=== PATIENT | male | born 1945 | race Caucasian/White ===

== ENCOUNTER 2022-03-05 09:13 | Outpatient (CLI) | payer MEDICARE, OTHER | END 2022-03-05 09:14 | disposition home or self-care (01) | LOC: CSHWCC 09:13 | PROVIDERS: ATTEND Nurse Practitioner Family | DX: M27.2 Inflammatory conditions of jaws (principal) | CPT/HCPCS: 99203; G0463 ==

== ENCOUNTER 2022-03-10 14:39 | Outpatient (CLI) | payer MEDICARE | END 2022-03-10 14:40 | disposition home or self-care (01) | LOC: CSHULT 14:39 | PROVIDERS: ATTEND Nurse Practitioner Family | DX: M27.2 Inflammatory conditions of jaws (principal); I51.7 Cardiomegaly; I51.89 Other ill-defined heart diseases | CPT/HCPCS: 93306 ==

== ENCOUNTER 2022-03-16 08:10 | Outpatient (CLI) | payer MEDICARE | END 2022-03-16 08:11 | disposition home or self-care (01) | LOC: CSHWCC 08:10 | PROVIDERS: ATTEND Nurse Practitioner Family | DX: M27.2 Inflammatory conditions of jaws (principal) ==

== ENCOUNTER → 2022-03-17 | Outpatient (CLI) | payer MEDICARE | LOC: CSHWCC 15:35 | PROVIDERS: ATTEND Nurse Practitioner Family | DX: M27.2 Inflammatory conditions of jaws (principal) | CPT/HCPCS: 97139; G0277 ==

== ENCOUNTER 2022-03-18 07:58 | Outpatient (CLI) | payer MEDICARE | END 2022-03-18 07:59 | disposition home or self-care (01) | LOC: CSHWCC 07:58 | PROVIDERS: ATTEND Nurse Practitioner Family | DX: M27.2 Inflammatory conditions of jaws (principal) ==

== ENCOUNTER 2022-03-19 08:50 | Outpatient (CLI) | payer MEDICARE | END 2022-03-19 08:51 | disposition home or self-care (01) | LOC: CSHWCC 08:50 | PROVIDERS: ATTEND Nurse Practitioner Family | DX: M27.2 Inflammatory conditions of jaws (principal) ==

== ENCOUNTER 2022-03-22 08:29 | Outpatient (CLI) | payer MEDICARE | END 2022-03-22 08:30 | disposition home or self-care (01) | LOC: CSHWCC 08:29 | PROVIDERS: ATTEND Nurse Practitioner Family | DX: M27.2 Inflammatory conditions of jaws (principal) ==

== ENCOUNTER 2022-03-23 10:35 | Outpatient (CLI) | payer MEDICARE | END 2022-03-23 10:36 | disposition home or self-care (01) | LOC: CSHWCC 10:35 | PROVIDERS: ATTEND Nurse Practitioner Family | DX: M27.2 Inflammatory conditions of jaws (principal) ==

== ENCOUNTER 2022-03-29 11:00 | Outpatient (CLI) | payer MEDICARE | END 2022-03-29 11:01 | disposition home or self-care (01) | LOC: CSHWCC 11:00 | PROVIDERS: ATTEND Nurse Practitioner Family | DX: M27.2 Inflammatory conditions of jaws (principal) ==

== ENCOUNTER 2022-03-30 08:22 | Outpatient (CLI) | payer MEDICARE | END 2022-03-30 08:23 | disposition home or self-care (01) | LOC: CSHWCC 08:22 | PROVIDERS: ATTEND Nurse Practitioner Family | DX: M27.2 Inflammatory conditions of jaws (principal) | CPT/HCPCS: 97139; G0277 ==

== ENCOUNTER 2022-03-31 11:20 | Outpatient (CLI) | payer MEDICARE | END 2022-03-31 11:21 | disposition home or self-care (01) | LOC: CSHWCC 11:20 | PROVIDERS: ATTEND Nurse Practitioner Family | DX: M27.2 Inflammatory conditions of jaws (principal) ==

== ENCOUNTER 2022-04-01 10:46 | Outpatient (CLI) | payer MEDICARE | END 2022-04-01 10:47 | disposition home or self-care (01) | LOC: CSHWCC 10:46 | PROVIDERS: ATTEND Nurse Practitioner Family | DX: M27.2 Inflammatory conditions of jaws (principal) ==

== ENCOUNTER 2022-04-02 08:04 | Outpatient (CLI) | payer MEDICARE | END 2022-04-02 08:05 | disposition home or self-care (01) | LOC: CSHWCC 08:04 | PROVIDERS: ATTEND Nurse Practitioner Family | DX: M27.2 Inflammatory conditions of jaws (principal) | CPT/HCPCS: G0277 ==

== ENCOUNTER 2022-04-05 08:19 | Outpatient (CLI) | payer MEDICARE | END 2022-04-05 08:20 | disposition home or self-care (01) | LOC: CSHWCC 08:19 | PROVIDERS: ATTEND Nurse Practitioner Family | DX: M27.2 Inflammatory conditions of jaws (principal) ==

== ENCOUNTER 2022-04-06 08:22 | Outpatient (CLI) | payer MEDICARE | END 2022-04-06 08:23 | disposition home or self-care (01) | LOC: CSHWCC 08:22 | PROVIDERS: ATTEND Nurse Practitioner Family | DX: M27.2 Inflammatory conditions of jaws (principal) ==

== ENCOUNTER 2022-04-07 10:20 | Outpatient (CLI) | payer MEDICARE | END 2022-04-07 10:21 | disposition home or self-care (01) | LOC: CSHWCC 10:20 | PROVIDERS: ATTEND Nurse Practitioner Family | DX: M27.2 Inflammatory conditions of jaws (principal) ==

== ENCOUNTER 2022-04-08 08:06 | Outpatient (CLI) | payer MEDICARE | END 2022-04-08 08:07 | disposition home or self-care (01) | LOC: CSHWCC 08:06 | PROVIDERS: ATTEND Nurse Practitioner Family | DX: M27.2 Inflammatory conditions of jaws (principal) ==

== ENCOUNTER 2022-04-09 08:03 | Outpatient (CLI) | payer MEDICARE | END 2022-04-09 08:04 | disposition home or self-care (01) | LOC: CSHWCC 08:03 | PROVIDERS: ATTEND Nurse Practitioner Family | DX: M27.2 Inflammatory conditions of jaws (principal) | CPT/HCPCS: G0277 ==

== ENCOUNTER 2022-04-13 08:25 | Outpatient (CLI) | payer MEDICARE | END 2022-04-13 08:26 | disposition home or self-care (01) | LOC: CSHWCC 08:25 | PROVIDERS: ATTEND Nurse Practitioner Family | DX: M27.2 Inflammatory conditions of jaws (principal) | CPT/HCPCS: G0277 ==

== ENCOUNTER 2022-04-14 08:06 | Outpatient (CLI) | payer MEDICARE | END 2022-04-14 08:07 | disposition home or self-care (01) | LOC: CSHWCC 08:06 | PROVIDERS: ATTEND Nurse Practitioner Family | DX: M27.2 Inflammatory conditions of jaws (principal) ==

== ENCOUNTER 2022-04-20 08:04 | Outpatient (CLI) | payer MEDICARE | END 2022-04-20 08:05 | disposition home or self-care (01) | LOC: CSHWCC 08:04 | PROVIDERS: ATTEND Nurse Practitioner Family | DX: M27.2 Inflammatory conditions of jaws (principal) | CPT/HCPCS: 97139; G0277 ==

== ENCOUNTER 2022-04-21 10:45 | Outpatient (CLI) | payer MEDICARE | END 2022-04-21 10:46 | disposition home or self-care (01) | LOC: CSHWCC 10:45 | PROVIDERS: ATTEND Nurse Practitioner Family | DX: M27.2 Inflammatory conditions of jaws (principal) ==